=== PATIENT | female | born 1960 | race Caucasian/White ===

== ENCOUNTER 2023-06-12 18:20 | Emergency (ER) | payer OTHER ==
[2023-06-12 18:29] VITALS: BMI 31.8
[2023-06-12] MEDS ORDERED: IBUPROFEN 600 MG TABLET (FP) PO ONE ×2 (20:15→20:17)
[2023-06-12] MEDS ORDERED: AMOX TR/POT CLAV 875MG/125MG TABLETS (FP) PO ONE (20:15)
[2023-06-12] MEDS ORDERED: AMOX TR/POT CLAV 875MG/125MG TABLETS (FP) ONE (20:17)
[2023-06-12 20:44] VITALS: BP 142/72; PULSE 104; RESP 18; TEMP 98.6
== END 2023-06-12 20:53 | disposition home or self-care (01) ==
LOC: JERFT 18:20 → JER 18:20 → JERFT 20:53
PROC: 0H96XZZ Drainage of Back Skin, External Approach (ICD-10-PCS; principal; 2023-06-12)
DX: L02.212 Cutaneous abscess of back [any part, except buttock and flank] (principal)
CPT/HCPCS: 99283-25

== ENCOUNTER 2023-08-23 09:00 | Emergency (ER) | payer OTHER ==
[2023-08-23 09:05] VITALS: BMI 30.9
[2023-08-23] MEDS ORDERED: ACETAMINOPHEN INJECTION 100 ML IVPB ONE (09:42)
[2023-08-23] MEDS ORDERED: FAMOTIDINE 20 MG/50 ML IVPB 20 MG/50 ML MG IVPB ONE (09:42)
[2023-08-23] MEDS ORDERED: ONDANSETRON *ODT* 4 MG TABLET ONE (09:42)
[2023-08-23] MEDS: LACTATED RINGERS SOLUTION 1000 ML INFUS.BAG IV ONE ×2 (10:03→12:28)
[2023-08-23] MEDS: ONDANSETRON *ODT* 4 MG TABLET SL ONE (10:03)
[2023-08-23] MEDS: FAMOTIDINE 20 MG/50 ML IVPB 20 MG/50 ML MG IVPB ONE (10:03)
[2023-08-23] MEDS: ACETAMINOPHEN 1000 MG/100 ML BAG IVPB ONE (10:03)
[2023-08-23 10:08] LABS: HEMATOCRIT 39.8 % (32.4-45.2); HEMOGLOBIN 13.1 GM/dL (10.7-15.3); MCH 29.8 pg (25.7-33.7); MCHC 32.9 g/dl (32.0-36.0); MEAN CELL VOLUME 90.6 fl (80-96); PLATELET COUNT 204 10^3/uL (134-434); RBC 4.39 M/mm3 (3.60-5.2); RDW 13.9 % (11.6-15.6)
[2023-08-23 10:12] LABS: EPI CELLS >36 /uL (0-25.1); HYALINE CASTS 1 /uL (0-3.1); URINE APPEARANCE CLEAR; URINE BACTERIA 301 /uL (0-1359); URINE BILIRUBIN NEGATIVE (NEGATIVE); URINE COLOR YELLOW; URINE GLUCOSE (UA) 3+ (NEGATIVE); URINE KETONE TRACE (NEGATIVE); URINE LEUK ESTERASE NEGATIVE (NEGATIVE); URINE NITRITE NEGATIVE (NEGATIVE); URINE PROTEIN 1+ (NEGATIVE); URINE RBC 9 /uL (0-23.9); URINE UROBILINOGEN 0.2 mg/dL (0.2-1.0); URINE WBC 29 /uL (0-25.8)
[2023-08-23 10:25] LABS: POTASSIUM 4.4 mmol/L (3.5-5.1)
[2023-08-23 10:27] LABS: CALCIUM 8.9 mg/dL (8.5-10.1)
[2023-08-23 10:28] LABS: ALBUMIN 3.6 g/dl (3.4-5.0); BLOOD UREA NITROGEN 22.9 mg/dL (7-18); MAGNESIUM 1.6 mg/dL (1.8-2.4)
[2023-08-23 10:31] LABS: CREATININE 1.3 mg/dL (0.55-1.3)
[2023-08-23 10:32] LABS: BILIRUBIN,TOTAL 0.5 mg/dL (0.2-1); TOT PROT 7.7 g/dl (6.4-8.2)
[2023-08-23] MEDS ORDERED: MAGNESIUM SULFATE IN WATER 2 GM/50 ML IVPB IVPB ONE (10:42)
[2023-08-23] MEDS: MAGNESIUM SULFATE IN WATER 2 GM/50 ML IVPB IVPB ONE (10:48)
[2023-08-23 10:55] LABS: LACTIC ACID 4.4 mmol/L (0.4-2.0)
[2023-08-23 11:21] LABS: ANISOCYTOSIS 0; MACROCYTOSIS 0
[2023-08-23 14:03] LABS: LACTIC ACID 4.2 mmol/L (0.4-2.0)
[2023-08-23 15:46] VITALS: TEMP 98.3
[2023-08-23 16:11] LABS: VENOUS BASE EXCESS -0.3 mmol/L (-2-2); VENOUS O2 SATURATION 53.1 % (70-80); VENOUS PCO2 46.7 mmHg (38-52); VENOUS PH 7.356 (7.310-7.410)
[2023-08-23] MEDS: SODIUM CHLORIDE 1,000 ML IV SCH (16:25)
[2023-08-23 19:10] LABS: LACTIC ACID 3.7 mmol/L (0.4-2.0)
[2023-08-23 19:28] VITALS: BP 133/69; PULSE 94; RESP 16
== END 2023-08-23 19:28 | disposition home or self-care (01) ==
LOC: JER 09:00
PROC: 3E033GC Introduction of Other Therapeutic Substance into Peripheral Vein, Percutaneous Approach (ICD-10-PCS; principal; 2023-08-23)
PROC: 3E033GC Introduction of Other Therapeutic Substance into Peripheral Vein, Percutaneous Approach (ICD-10-PCS; 2023-08-23)
PROC: 3E033NZ Introduction of Analgesics, Hypnotics, Sedatives into Peripheral Vein, Percutaneous Approach (ICD-10-PCS; 2023-08-23)
DX: R10.13 Epigastric pain (principal); R11.2 Nausea with vomiting, unspecified; R19.7 Diarrhea, unspecified; Z20.822 Contact with and (suspected) exposure to COVID-19
CPT/HCPCS: 0241U-QW; 36415; 74174-TC; 76705-TC; 80053; 81003; 82803; 83605; 83690; 83735; 84484; 85025; 87086; 93005; 93010; 99285-25; J0131; Q0162